=== PATIENT | female | born 1975 | race Caucasian/White ===

== ENCOUNTER 2019-07-19 11:37 | Day surgery (SDC) | payer OTHER ==
[2019-07-19 11:57] LABS: BASO % 0.6 % (0-2.0); EOS % 0.3 % (0-4.5); HEMATOCRIT 36.2 % (32.4-45.2); HEMOGLOBIN 11.9 GM/dL (10.7-15.3); MCH 27.7 pg (25.7-33.7); MCHC 32.9 g/dl (32.0-36.0); MEAN CELL VOLUME 84.1 fl (80-96); MEAN PLT VOLUME 8.3 fl (7.5-11.1); MONO % 8.2 % (3.8-10.2); NEUT % 65.9 % (42.8-82.8); PLATELET COUNT 217 K/MM3 (134-434); RDW 13.9 % (11.6-15.6); WHITE BLOOD COUNT 7.1 K/mm3 (4.0-10.0)
[2019-07-19 12:36] VITALS: BMI 38.1
[2019-07-19] MEDS ORDERED: ACETAMINOPHEN 325 MG TABLET (FP) PO PRN ×2 (13:51→14:28)
[2019-07-19] MEDS ORDERED: oxyCODONE HCL 5 MG TABLET PO PRN ×2 (13:51)
[2019-07-19] MEDS ORDERED: LACTATED RINGERS SOLUTION 1,000 ML IV SCH (14:00)
[2019-07-19] MEDS ORDERED: PROPOFOL 20 ML ONE ×2 (14:24→14:30)
[2019-07-19] MEDS ORDERED: MIDAZOLAM HCL 2 MG/2 ML SINGLE DOSE VIAL ONE (14:24)
[2019-07-19] MEDS ORDERED: SUCCINYLCHOLINE CHLORIDE 200 MG/10 ML SYRINGE ONE (14:24)
[2019-07-19] MEDS ORDERED: EPHEDRINE SULFATE/0.9% NACL/PF 50 MG/10 ML SYRINGE NR ONE (14:25)
[2019-07-19] MEDS ORDERED: IBUPROFEN 400 MG TABLET (FP) PO PRN (14:28)
--- NOTE | 2019-07-19 14:33 | HP ---
Satellite [facility] - Chief Complaint History Source: Patient Limitations to Obtaining History: No Limitations - Past Medical History Allergies/Adverse Reactions: Allergies Allergy/AdvReac Type Severity Reaction Status Date / Time No Known Allergies Allergy Verified 07/19/19 12:40 ...LMP Comment: PT'S FOR MISSED AB - Current Medications Current Medications: Home Medications Medication Instructions Recorded Cholecalciferol (Vitamin D3) 400 unit PO DAILY 07/19/19 [Vitamin D3 -] Cyanocobalamin [Vitamin B12 -] 100 mcg PO DAILY 07/19/19 Docusate Sodium [Stool Softener] 100 mg PO DAILY 07/19/19 Folic Acid 1 mg PO DAILY 07/19/19 No122/Iron/Folic Acid 1 each PO DAILY 07/19/19 [ Multi Tablet] Progesterone, Micronized [Crinone] 1.125 gm VG DAILY 07/19/19 Satellite Physical Exam - Physical Examination Vital Signs: Vital Signs Period Temp Pulse Resp BP Sys/Jerry Pulse Ox Last 24 Hr 98.6 F-98.6 F 58-58 20-20 95-95/62-62 100 General Appearance: Well Nourished, Well Developed ENT: Clear Lung: Clear to auscultation Heart: Regular rate & rhythm Breasts: Soft, Non-Tender Abdomen: Soft Extremities: No edema Pelvic Exam: Within normal limits External Genitalia, Within normal limits Vagina, Within normal limits Cervix, Within normal limits [place], Other Uterus Neurological: Intact, Alert, Oriented Satellite Impression/Plan - Impression/Plan Impression: Missed Operative Procedure: Suction DC Date to be Performed: 07/19/19
[2019-07-19] MEDS ORDERED: GLYCOPYRROLATE 0.2 MG/1 ML VIAL ONE (14:35)
[2019-07-19] MEDS ORDERED: LIDOCAINE HCL/PF 2% SDV 5ML VIAL ONE (14:35)
[2019-07-19] MEDS ORDERED: DEXAMETHASONE SOD PHOSPHATE 4 MG/1 ML VIAL ONE (14:35)
--- NOTE | 2019-07-19 14:35 | OP ---
Operative Note - Note: Operative Date: 07/19/19 Pre-Operative Diagnosis: Missed Operation: Suction DC Findings: 7 weeks with no heart beat Post-Operative Diagnosis: Same as Pre-op Surgeon: Jeana Willis Anesthesia: General Estimated Blood Loss (mls): 40 Operative Report Dictated: Yes
[2019-07-19] MEDS ORDERED: KETOROLAC TROMETHAMINE 30 MG/1 ML VIAL ONE (14:40)
[2019-07-19] MEDS ORDERED: ceFAZolin SODIUM 1 GM VIAL IVPB ONE (14:45)
[2019-07-19] MEDS ORDERED: ceFAZolin SODIUM 1 GM VIAL ONE (14:52)
[2019-07-19 16:21] VITALS: TEMP 98.3
[2019-07-19 17:30] VITALS: BP 103/62; PULSE 69
--- NOTE | 2019-07-19 20:02 | OP ---
DATE OF OPERATION: 07/19/2019 PREOPERATIVE DIAGNOSIS: Missed POSTOPERATIVE DIAGNOSIS: Missed OPERATION: Suction dilation and curettage. SURGEON: Jeana Willis MD. ESTIMATED BLOOD LOSS: 60 mL. PROCEDURE: Patient was taken to the operating room, placed in dorsal lithotomy position. Prepped and draped in the usual sterile fashion. Timeout was performed in accordance with hospital regulation. Speculum is placed in the vagina. Anterior lip of the cervix was grasped with single-toothed tenaculum. Cervix then dilated to accommodate the number 9 suction curet. Suction curettage followed by sharp curettage was then done. Uterine massage was then done. All instruments then removed. Estimated blood loss 60 mL. Tissue was sent for chromosomal analysis. JEANA WILLIS M.D. [id number] MTDD
--- NOTE | 2019-07-22 17:03 | PATH ---
Surgical Pathology Report Patient Name: KRISTI CARRILLO Med. Rec. #: [id number] /Age/Gender: 1975 (Age: 44) / F Account: [id number] Location: [facility] SURGICAL Taken: 07/19/2019 Received: 07/19/2019 Reported: 07/22/2019 Physicians: Jeana Willis M.D. Specimen(s) Received PRODUCTS OF CONCEPTION Clinical History Missed Final Diagnosis PRODUCTS OF CONCEPTION, SUCTION DILATION AND CURETTAGE: CHORIONIC VILLI PRESENT, CONSISTENT WITH PRODUCTS OF CONCEPTION. Comment: Chromosome analysis result is pending. An addendum report to follow. Electronically Signed Prema Dumont M.D. Gross Description Received fresh labeled "products of conception," is a 15.5 x 11.0 x 1.2 cm aggregate of grande red soft tissue fragments. Villous tissue is identified. No somatic tissue is identified. A customer service representative teacher portion is placed in RPMI solution and sent for chromosomal analysis. An additional customer service representative teacher portion is submitted in one cassette. /07/19/2019 [facility]07/19/2019
== END 2019-07-19 17:00 | disposition home or self-care (01) ==
LOC: JASU-SURG 11:37
PROVIDERS: ATTEND Obstetrics & Gynecology
PROC: 10D17ZZ Extraction of Products of Conception, Retained, Via Natural or Artificial Opening (ICD-10-PCS; principal; 2019-07-19 12:00)
DX: O02.1 Missed abortion (principal)
CPT/HCPCS: 36415; 85025; 86850; 86900; 86901; 88305-TC; 94760